=== PATIENT | female | born 1960 | race Two or more races ===

== ENCOUNTER 2025-01-20 10:51 | Emergency (ER) | payer MEDICAID, SELFPAY ==
[2025-01-20 11:03] VITALS: BP 133/83; PULSE 93; RESP 18; TEMP 36.9; O2SAT 97; BMI 28.9
--- NOTE | 2025-01-20 11:14 | PD.EDADULT ---
ED General RME/HPI General Chief complaint: Abdominal Pain Stated complaint: Hard time breathing X 3 months, worse at night Time Seen by Provider: 01/20/25 11:01 Arrival date/time: 01/20/25 10:51 Limitations: no limitations RME / HPI RME / HPI narrative: DR. FELIX MAIN ED EVALUATION: CC: Abdominal bloating x 3 months Was treated with Famotidine 40 mg QHS for more than 6 weeks without change. Pain is more intense at nights. She feels her abdomen gets bloated. Has chronic constipation. MD complaint: Abdominal bloating x 3 months Onset (ago): month(s) (3) Location: abdomen (Epigastric) Severity: moderate Consistency: intermittent Exacerbating factors: eating Related Data Previous Rx's ?Medication ?Instructions ?Recorded Hydrocodone/Acetaminophen * (NORCO 1 tab PO Q6H PRN pain #15 tabs 02/21/17 5/325 *) acetaminophen 500 mg capsule 500 mg PO Q4H PRN pain #60 caps 10/22/18 diphenhydramine HCl 25 mg capsule 25 mg PO TID PRN allergic reaction 08/22/23 (Benadryl) #30 caps polyethylene glycol 3350 17 gram 17 g PO QDAY #30 ea 01/20/25 oral powder packet (Miralax) Allergies Allergy/AdvReac Type Severity Reaction Status Date / Time ampicillin Allergy Severe Hives Verified 01/20/25 10:57 Review of Systems Review of Systems Systems Reviewed: All systems reviewed, normal except as documented Gastrointestinal Gastrointestinal: Reports constipation Past Medical History Social History SMOKING STATUS: Never smoker SUBSTANCE USE: does not use ALCOHOL: Never ED Exam General Limitations: Present no limitations General appearance: Present alert and in no apparent distress Head Head exam: Present atraumatic Eye Eye exam: Present normal appearance ENT ENT exam: Present normal exam Neck Neck exam: Present normal inspection Abdominal Exam Abdominal exam: Present soft, distention (gaseous) and hyperactive bowel sounds; Absent tenderness Rectal Exam Rectal exam: Present deferred Extremities Exam Extremities exam: Present normal inspection Course Quality Measures none Orders Category Date Time Status CT chest wo con Stat Exams 01/20/25 12:01 Completed XR abdomen flat and uprght Stat Exams 01/20/25 11:13 Completed Vital Signs Vital signs: Vital Signs Temperature 98.4 F 01/20/25 11:03 Pulse Rate 93 01/20/25 11:03 Respiratory Rate 18 06/13/25 11:03 Blood Pressure 133/83 H 01/20/25 11:03 Pulse Oximetry (%) 97 01/20/25 11:03 Oxygen Delivery Method Room Air 01/20/25 11:03 Discharge Plan Plan Patient Disposition: HOME (Self Care) Patient condition on transfer: Stable Prescriptions/Referrals Prescriptions/Med Rec: New polyethylene glycol 3350 [Miralax] 17 gram powder in packet 17 g PO QDAY Qty: 30 0RF No Action Hydrocodone/Acetaminophen * (NORCO 5/325 *) 1 TAB tablet 1 tab PO Q6H PRN (Reason: pain) Qty: 15 0RF acetaminophen 500 mg capsule 500 mg PO Q4H PRN (Reason: pain) Qty: 60 0RF diphenhydramine HCl [Benadryl] 25 mg capsule 25 mg PO TID PRN (Reason: allergic reaction) Qty: 30 0RF Problem List Clinical Impression: CHF (congestive heart failure), Abdominal bloating, Mass of lung Patient/Caregiver Discharge Instructions Discharge Activity: activity as tolerated Education Materials: Heart Failure Dc, ED Excess Gas, ED Tumor, Uncertain Cause Print Language: Sudanese Stand Alone Forms: [employer] Award Info., Patient Portal Info Letter MDM Narrative MDM hospital course: Her abdominal pain is due to slow transit constipation. Her orthopnea is due to undiagnosed CHF. The abnol finding on the x-ray was followed by a CT scan, which showed a pulmonary mass, which requires IR for biopsy for further recommendation. Patient and her daughter are aware of these findings. Clinical Information Provided by patient Medical Records Reviewed [facility] Meds/Rx Considered, not Ordered None Labs/Rad/Tests considered, not Ordered None Chronic Illness/Social Conditions Add or document further as needed: Diabetes mellitus Imaging Radiology reports / interpretation(s): Procedure(s): XR abdomen flat and uprght Accession Number(s): [id number] cc: Israel Felix MD; Tr Chaidez MD~ Examination: Abdomen 2 views Technique one AP upright AP supine abdomen 2 views Date and time: January 20, 2025 1132 hours INDICATIONS: Shortness of breath abdominal pain beginning 3 months ago. FINDINGS: Multiple calcified gallstones Nonobstructive bowel gas pattern. Minimal left upper abdomen small bowel ileus Numerous presumed pelvic phleboliths Prominent osteopenia No free air Partial visualization pulmonary mass in the left lower lung zone, measuring at least 34 mm IMPRESSION: Cholelithiasis Recommend PA lateral chest follow-up to exclude 34 mm pulmonary mass left lung Dictated By: Tr Chaidez MD Procedure(s): CT chest wo [facility] Accession Number(s): [id number] cc: Israel Felix MD; Tr Chaidez MD; Derian Miller MD~ Examination: CT chest, without intravenous contrast. Sagittal and coronal 2-D reconstructions. Exam date and time: January 20, 2025 1213 hours INDICATIONS: Pulmonary mass left lung noted on abdomen series today CTDI:vol (mGy) 11.3 DLP: (mGycm) 389 Technique: Multiple 3.0 mm axial sections of the chest to been obtained. Bone and lung density settings are obtained. Sagittal and coronal 2-D reconstructions have been obtained. Low dose protocols were performed. One or more of the following dose reduction techniques were used; automated exposure control, adjustment of the mA and/or KV according to patient size, use of iterative reconstruction technique. Findings: Multiple high left periaortic lymph nodes, the largest 10 mm Multiple precarinal lymph nodes, the largest 12 mm Mild enlargement cardiac contour Moderate vascular congestion Septal pulmonary edema throughout the lungs with small pleural effusions Pulmonary mass spiculated margins superior segment left lower lobe, axial image 161 sagittal image 60, measuring 3.6 x 3.1 cm No visualized liver or splenic lesion Cholelithiasis Minimal nodular thickening left adrenal gland Parapelvic cysts Prominent osteopenia IMPRESSION: Mild to moderate CHF 3.6 x 3.1 cm pulmonary mass spiculated margins superior segment left lower lobe, highest on the differential list lung cancer Dictated By: Tr Chaidez MD Diagnosis Differential diagnosis: abdominal distention, ascites, SBO Most likely dx, and/or detailed dx discussion: Abdominal bloating Dispositon Disposition: Discharge Home
--- NOTE | 2025-01-20 12:01 | XR_ITS ---
Examination: CT chest, without intravenous contrast. Sagittal and coronal 2-D reconstructions. Exam date and time: January 20, 2025 1213 hours INDICATIONS: Pulmonary mass left lung noted on abdomen series today CTDI:vol (mGy) 11.3 DLP: (mGycm) 389 Technique: Multiple 3.0 mm axial sections of the chest to been obtained. Bone and lung density settings are obtained. Sagittal and coronal 2-D reconstructions have been obtained. Low dose protocols were performed. One or more of the following dose reduction techniques were used; automated exposure control, adjustment of the mA and/or KV according to patient size, use of iterative reconstruction technique. Findings: Multiple high left periaortic lymph nodes, the largest 10 mm Multiple precarinal lymph nodes, the largest 12 mm Mild enlargement cardiac contour Moderate vascular congestion Septal pulmonary edema throughout the lungs with small pleural effusions Pulmonary mass spiculated margins superior segment left lower lobe, axial image 161 sagittal image 60, measuring 3.6 x 3.1 cm No visualized liver or splenic lesion Cholelithiasis Minimal nodular thickening left adrenal gland Parapelvic cysts Prominent osteopenia IMPRESSION: Mild to moderate CHF 3.6 x 3.1 cm pulmonary mass spiculated margins superior segment left lower lobe, highest on the differential list lung cancer
== END 2025-01-20 13:31 | disposition home or self-care (01) ==
PROVIDERS: Emergency Provider Emergency Medicine; PCP Orthopaedic Surgery Adult Reconstructive Orthopaedic Surgery
DX: K80.20 Calculus of gallbladder without cholecystitis without obstruction (principal); I50.9 Heart failure, unspecified; R91.8 Other nonspecific abnormal finding of lung field; K59.09 Other constipation
CPT/HCPCS: 71250; 74019; 99284